=== PATIENT | male | born 1980 ===

== ENCOUNTER 2017-09-03 09:57 | Emergency (ER) | payer OTHER ==
[2017-09-03 10:03] VITALS: BMI 31.3
[2017-09-03 10:05] VITALS: TEMP 97; O2SAT 98
[2017-09-03 10:39] VITALS: RESP 18
[2017-09-03 12:39] VITALS: BP 128/76; PULSE 78
--- NOTE | 2017-09-03 13:01 | ED PDOC ---
HPI: Skin/Bite Injury Time Seen by Provider: 09/03/17 10:16 Chief Complaint (Nursing): Abnormal Skin Integrity Chief Complaint (Provider): genital warts History Per: Patient Additional Complaint(s): 37 yo male, no PMH, presents to ED for evaluation of genital warts that he has had for 2 years. Pt denies nay pain ot affected area. Pt reports that he is concerned bc his recently had an abnormal pap and has a biopsy scheduled. Pt would also like screening for cervical cancer Past Medical History Reviewed: Nursing Documentation, Vital Signs Vital Signs: Last Vital Signs Temp 97 F L 09/03/17 12:38 Pulse 78 09/03/17 12:38 Resp 18 09/03/17 12:38 BP 128/76 09/03/17 12:38 Pulse Ox 98 09/03/17 12:38 - Medical History PMH: No Chronic Diseases - Surgical History Surgical History: No Surg Hx - Family History Family History: States: No Known Family Hx - Living Arrangements Living Arrangements: With Family - Social History Current smoker - smoking cessation education provided: No Ex-Smoker (has not smoked in the last 12 months): No Alcohol: None Drugs: Denies - Allergies Allergies/Adverse Reactions: Allergies Allergy/AdvReac Type Severity Reaction Status Date / Time Penicillins Allergy Intermediate RASH Verified 09/03/17 10:37 Review of Systems ROS Statement: Except As Marked, All Systems Reviewed And Found Negative Skin: Positive for: Lesions Physical Exam - Reviewed Nursing Documentation Reviewed: Yes Vital Signs Reviewed: Yes - Physical Exam Appears: Positive for: Well, Non-toxic, No Acute Distress Head Exam: Positive for: ATRAUMATIC, NORMAL INSPECTION, NORMOCEPHALIC Skin: Positive for: Normal Color, Warm, DRY Eye Exam: Positive for: EOMI, Normal appearance, PERRL ENT: Positive for: Normal ENT Inspection Neck: Positive for: Normal, Painless ROM Cardiovascular/Chest: Positive for: Regular Rate, Rhythm Respiratory: Positive for: CNT, Normal Breath Sounds Gastrointestinal/Abdominal: Positive for: Normal Exam, Bowel Sounds, Soft Male Genital Exam: Positive for: lesions ((+) genital warts noted to base of penis) Back: Positive for: Normal Inspection Extremity: Positive for: Normal ROM Neurologic/Psych: Positive for: Alert, Oriented - ECG O2 Sat by Pulse Oximetry: 98 Medical Decision Making Medical Decision Making: Pt educated on cervical cancer screenings, HPV strains etc advised to follow up with urology/derm for wart removal. Pt demonstrated full understanding Disposition - Clinical Impression Clinical Impression: Genital warts - Disposition Disposition: Routine/Home Disposition Time: 13:03 Condition: STABLE Instructions: Genital Warts (ED) Forms: [facility] ([place]an) Print Language: SWISS
== END 2017-09-03 12:39 | disposition home or self-care (01) ==
LOC: H.ER 09:57
DX: A63.0 Anogenital (venereal) warts (principal); Z88.0 Allergy status to penicillin